=== PATIENT | male | born 1955 | race Caucasian/White ===

== ENCOUNTER → 2016-07-30 | Day surgery (SDC) | payer OTHER ==
[~2016-07-30] MED LIST: APIX5TAB PO; ASPI81TA82 PO; ATOR40TA49 PO; CARV12.52 PO; LACTATED RINGER'S 1000 ML INJ 1,000 ML ONE; LEVO.025 PO; PACE200T4 PO; PROPOFOL 500 MG/50 ML BTL IV ONE
== END | disposition home or self-care (01) ==
LOC: ESDC 07:08
PROVIDERS: ATTEND Surgery
DX: K21.0 Gastro-esophageal reflux disease with esophagitis (principal); E66.01 Morbid (severe) obesity due to excess calories
CPT/HCPCS: 00740; 43239; 88305; 88312; J3010; J7120

== ENCOUNTER 2016-12-15 15:00 | Inpatient (IN) | payer OTHER ==
[~2016-12-15] VITALS: Ht 185.4 cm; Wt 138.9 kg
[~2016-12-15 15:00] MED LIST changes: +AMLO2.5T PO; -ASPI81TA82 PO; +ATOR40TA16 PO; -ATOR40TA49 PO; -CARV12.52 PO; +CARV6.252 PO; -LACTATED RINGER'S 1000 ML INJ 1,000 ML ONE; -LEVO.025 PO; +LEVO25TA4 PO; -PACE200T4 PO; -PROPOFOL 500 MG/50 ML BTL IV ONE
[2016-12-16] MEDS ORDERED: LACTATED RINGER'S 1000 ML IV PRN (06:15)
[2016-12-16] MEDS ORDERED: CHLORHEXIDINE GLUCONATE 2 % 1 PACK (2 CLOTHS) TOPICAL PRN (06:15)
[2016-12-16] MEDS ORDERED: POVIDONE IODINE 5% (ANTISEPSIS KIT) 4 APPLICATIONS EACH NARE PRN (06:15)
[2016-12-16] MEDS ORDERED: INSULIN HUMAN REGULAR 1,000 UNITS/10 ML VIAL SQ PRN (06:15)
[2016-12-16] MEDS ORDERED: METOPROLOL TARTRATE 25 MG TAB PO PRN (06:15)
[2016-12-16] MEDS ORDERED: SODIUM CHLORID 0.9% 500 ML IV PRN (06:15)
[2016-12-16] MEDS ORDERED: ACETAMINOPHEN 1000 MG/100 ML VIAL IV SCH (06:30)
[2016-12-16] MEDS ORDERED: SCOPOLAMINE 1.5 MG PATCH T-DERMAL SCH (06:30)
[2016-12-16] MEDS ORDERED: metroNIDAZOLE 500 MG INJ 100 ML IV SCH (06:30)
[2016-12-16] MEDS ORDERED: ceFAZolin 2 GM PREMIX 50 ML IV SCH (06:30)
[2016-12-16] MEDS ORDERED: APREPITANT 40 MG CAP PO SCH (06:30)
[2016-12-16] MEDS ORDERED: AMLO5TAB2 PO (07:50)
[2016-12-16 07:51] VITALS: BP 148/93; PULSE 78; RESP 20; TEMP 98.8; O2SAT 97
[2016-12-16] MEDS: ONDANSETRON HCL 4 MG/2 ML VIAL IV PUSH SCH (07:54)
[2016-12-16] MEDS ORDERED: PROPOFOL 200 MG/20 ML AMP IV ONE (08:01)
[2016-12-16] MEDS ORDERED: NEOSTIGMINE 3 MG/3 ML SYR IV ONE (08:01)
[2016-12-16] MEDS ORDERED: LACTATED RINGER'S 1000 ML INJ 1,000 ML IV ONE (08:02)
[2016-12-16] MEDS ORDERED: ONDANSETRON HCL 4 MG/2 ML VIAL IV PUSH ONE (08:02)
--- NOTE | 2016-12-16 08:33 | EKG ---
Date Performed: 12/16/2016 Time Performed: 08:26:04 PTAGE: 61 years EKG: ATRIAL FIBRILLATION RIGHT BUNDLE BRANCH BLOCK ABNORMAL ECG PREVIOUS TRACING : 02/18/2015 12.31 DOCTOR: uSpa Marroquin Interpretating Date/Time 12/16/2016 08:31:12
[2016-12-16] MEDS ORDERED: MIDAZOLAM HCL 2 MG/2 ML VIAL ONE (11:16)
[2016-12-16] MEDS ORDERED: FAMOTIDINE 20 MG/2 ML VIAL ONE (11:16)
[2016-12-16] MEDS ORDERED: fentaNYL CITRATE 250 MCG/5 ML AMP ONE (11:17)
--- NOTE | 2016-12-16 11:49 | HHI.PR ---
Immediate Post Op Note Procedure Date: Dec 16, 2016 Pre Op Diagnosis: morbid obesity, bmi 43, htn, preDM, hypercholestremia Post Op Diagnosis: same Surgeon: Jose Alberto Leggett MD Life Skills Consultant(s): Dr. Haley Procedure: lap RYGB Findings: No leak Complications: none Specimen(s) removed: none Estimated blood loss: 15cc Anesthesia: General Drains: None Patient to: PACU Patient Condition: Good Jose Alberto Leggett MD Dec 16, 2016 11:49
[2016-12-16] MEDS ORDERED: BUPIVACAINE/EPINEPHRINE 0.5% PF 10 ML VIAL INFIL ONE (12:00)
[2016-12-16] MEDS ORDERED: METHYLENE BLUE 10 MG/ML VIAL NG ONE (12:28)
[2016-12-16] MEDS ORDERED: ACETAMINOPHEN 325MG/HYDROcodone 7.5MG/15ML UDC PO PRN (14:15)
[2016-12-16] MEDS ORDERED: diphenhydrAMINE HCL 50 MG/ML VIAL IV PRN (14:15)
[2016-12-16] MEDS ORDERED: diphenhydrAMINE HCL ELIXIR 12.5 MG/5 ML CUP PO PRN (14:15)
[2016-12-16] MEDS ORDERED: ONDANSETRON HCL 4 MG/2 ML VIAL IV PRN (14:15)
[2016-12-16] MEDS ORDERED: Post-op Orders (for Pharmacy) MISC OTHER ONE (14:15)
[2016-12-16] MEDS ORDERED: ENALAPRILAT 1.25 MG/ML VIAL IV PUSH PRN (14:15)
[2016-12-16] MEDS ORDERED: SODIUM CHLORIDE 0.9% FLUSH 10 ML FLUSH IV FLUSH PRN (14:15)
[2016-12-16] MEDS ORDERED: *morphine SULFATE 8 MG/ML PERIprocedure ONLY ONE ×2 (14:31→14:44)
[2016-12-16] MEDS ORDERED: *HYDROmorphone PF 1 MG VIAL PERIprocedural Use ONLY ONE ×2 (15:03→18:11)
[2016-12-16] MEDS: D5-1/2 NS + KCL 20 MEQ INJ 1,000 ML IV SCH (15:26)
[2016-12-16] MEDS ORDERED: DO NOT ADM ANY ANTICOAGULANT DRUGS PRN (15:30)
[2016-12-16] MEDS: METOCLOPRAMIDE HCL 10 MG/2 ML VIAL IV PUSH SCH ×2 (16:00→20:49)
[2016-12-16] MEDS: PANTOPRAZOLE SOD 40 MG DELAYED RELEASE TAB PO SCH (16:00)
[2016-12-16] MEDS ORDERED: ENOXAPARIN SODIUM 40 MG/0.4 ML SYRINGE SQ SCH (18:00)
[2016-12-16] MEDS: metroNIDAZOLE 500 MG INJ 100 ML IV SCH (18:10)
[2016-12-16 20:13] VITALS: BP 131/76; PULSE 62; RESP 18; TEMP 96.6; O2SAT 97
[2016-12-16] MEDS: ACETAMINOPHEN 325MG/HYDROcodone 7.5MG/15ML UDC PO PRN (20:49)
[2016-12-16] MEDS: SODIUM CHLORIDE 0.9% FLUSH 10 ML FLUSH IV FLUSH SCH (21:00)
[2016-12-16 22:03] VITALS: O2SAT 97
[2016-12-17 00:03] VITALS: BP 139/75; PULSE 60; RESP 18; TEMP 95.8; O2SAT 95
[2016-12-17] MEDS: D5-1/2 NS + KCL 20 MEQ INJ 1,000 ML IV SCH ×2 (02:08→09:03)
[2016-12-17] MEDS: metroNIDAZOLE 500 MG INJ 100 ML IV SCH ×2 (02:09→08:57)
[2016-12-17] MEDS: METOCLOPRAMIDE HCL 10 MG/2 ML VIAL IV PUSH SCH ×2 (04:00→09:03)
[2016-12-17] MEDS: ACETAMINOPHEN 325MG/HYDROcodone 7.5MG/15ML UDC PO PRN ×3 (04:11→16:38)
[2016-12-17 04:37] VITALS: BP 139/101; PULSE 70; RESP 18; TEMP 96.3; O2SAT 98
[2016-12-17 05:03] VITALS: BP 128/89
[2016-12-17 08:00] VITALS: BP 151/89; PULSE 75; RESP 18; TEMP 96.6; O2SAT 95
[2016-12-17 08:14] LABS: AUTOMATED NEUTROPHIL # 9.7 TH/MM3 (1.8-7.7); BASOPHIL # 0.1 TH/MM3 (0-0.2); BASOPHIL % 0.4 % (0.0-2.0); EOSINOPHIL % 0.3 % (0.0-4.0); HEMATOCRIT 46.6 % (39.0-51.0); HEMO FLAGS DIFF FINAL; LYMPH % 10.7 % (9.0-44.0); LYMPHOCYTE # 1.3 TH/MM3 (1.0-4.8); MEAN CELL VOLUME 92.4 FL (80.0-100.0); MEAN CORPUSCULAR HEMOGLOBIN 29.9 PG (27.0-34.0); MEAN CORPUSCULAR HGB CONC 32.3 % (32.0-36.0); MONO % 7.7 % (0.0-8.0); NEUT % 80.9 % (16.0-70.0); PLATELET COUNT 164 TH/MM3 (150-450); RED BLOOD COUNT 5.04 MIL/MM3 (4.50-5.90); RED CELL DISTRIBUTION WIDTH 14.5 % (11.6-17.2); WHITE BLOOD COUNT 11.9 TH/MM3 (4.0-11.0)
[2016-12-17 08:45] LABS: BICARBONATE 26.3 MEQ/L (21.0-32.0); MAGNESIUM 2.1 MG/DL (1.5-2.5); POTASSIUM 4.1 MEQ/L (3.5-5.1)
[2016-12-17] MEDS: SODIUM CHLORIDE 0.9% FLUSH 10 ML FLUSH IV FLUSH SCH (08:56)
[2016-12-17] MEDS: PANTOPRAZOLE SOD 40 MG DELAYED RELEASE TAB PO SCH (08:57)
[2016-12-17] MEDS ORDERED: LEVOTHYROXINE SODIUM 25 MCG TAB PO SCH (10:00)
[2016-12-17 12:00] VITALS: BP 143/80; PULSE 80; RESP 18; TEMP 97.4; O2SAT 96
--- NOTE | 2016-12-17 12:17 | HHI.PR ---
Subjective Subjective Notes 61yo male POD#1 RNY. Seen ambulating the halls, in no acute distress. Denies any GI complaints Objective Vitals/I&O Vital Signs Date Time Temp Pulse Resp B/P Pulse Ox O2 Delivery O2 Flow Rate FiO2 12/17/16 08:00 96.6 75 18 151/89 95 12/16/16 22:03 21 12/16/16 18:00 Nasal Cannula 2 Labs Laboratory Tests Test 12/17/16 07:39 White Blood Count 11.9 Red Blood Count 5.04 Hemoglobin 15.1 Hematocrit 46.6 Mean Corpuscular Volume 92.4 Mean Corpuscular Hemoglobin 29.9 Mean Corpuscular Hemoglobin 32.3 Concent Red Cell Distribution Width 14.5 Platelet Count 164 Mean Platelet Volume 9.0 Neutrophils (%) (Auto) 80.9 Lymphocytes (%) (Auto) 10.7 Monocytes (%) (Auto) 7.7 Eosinophils (%) (Auto) 0.3 Basophils (%) (Auto) 0.4 Neutrophils # (Auto) 9.7 Lymphocytes # (Auto) 1.3 Monocytes # (Auto) 0.9 Eosinophils # (Auto) 0.0 Basophils # (Auto) 0.1 CBC Comment DIFF FINAL Differential Comment Sodium Level 140 Potassium Level 4.1 Chloride Level 107 Carbon Dioxide Level 26.3 Anion Gap 7 Blood Urea Nitrogen 14 Creatinine 0.85 Estimat Glomerular Filtration 92 Rate Random Glucose 127 Calcium Level 8.5 Magnesium Level 2.1 Cardiovascular: Irregular (history of A fib) Lungs: Clear Abdomen: Post-op tenderness Extremities: Perfused Wound Wound : Wound Location: Abdomen Appearance: Clean & Dry A/P Assessment and Plan Continue to increase fluids as tolerated Continue with frequent ambulation Discharge Planning D/C home later today Jaison Roberson Dec 17, 2016 12:17
[2016-12-17] MEDS ORDERED: METOCLOPRAMIDE HCL 10 MG/2 ML VIAL IV PUSH PRN (14:15)
[2016-12-17 16:00] VITALS: BP 154/96; PULSE 60; RESP 18; TEMP 95.9; O2SAT 98
[2016-12-17] MEDS: ONDANSETRON HCL 4 MG/2 ML VIAL IV PUSH SCH (16:37)
[2016-12-17] MEDS ORDERED: amLODIPine BESYLATE 5 MG TAB PO SCH (21:00)
--- NOTE | 2016-12-19 18:44 | MP ---
cc: DAVID LEGGETT MD DATE OF SURGERY 12/16/2016 PREOPERATIVE DIAGNOSIS Morbid obesity, BMI 43, hypertension, atrial fibrillation, hypercholesteremia, pre-diabetes. POSTOPERATIVE DIAGNOSIS Morbid obesity, BMI 43, hypertension, atrial fibrillation, hypercholesteremia, pre-diabetes. PROCEDURE PERFORMED Laparoscopic gastric bypass, Sandip-en-Y. SURGEON Dr. David Leggett HOG SLAUGHTERER Dr. Nikos Haley. Due to the complexity of the laparoscopic case Dr. Haley was needed for camera control and retraction. ANESTHESIA GETA. IV FLUIDS See anesthesia sheet. ESTIMATED BLOOD LOSS 15 cc. DRAINS None. COMPLICATIONS None. WOUND CLASSIFICATION Clean, contaminated. SPECIMENS None. FINDINGS No leak on methylene blue test. INDICATION The patient is a 61-year-old male who presents with morbid obesity, multiple attempts at weight loss without success. Therefore operative intervention after the patient has been cleared from medical standpoint. The patient has a history of Eliquis for which is held and has been deemed acceptable risk by cardiology. PROCEDURE IN DETAIL The patient was taken to the operating suite, placed in the supine position. He was prepped and draped in the usual sterile fashion after induction of general trache anesthesia. Brief time-out stating correct patient, procedure, surgical site. We are all in agreement with this. Attention first directed to the midline 18 cm from the xihpoid. Local anesthetic injected with Marcaine with epinephrine. 5 mm incision was made just off the midline to the left. 5-mm OptiView port was used to direct visualization and introduce peritoneum to 15 mm pneumoperitoneum. Vision of the quadrants there was no evidence of injury. Several other trocars were placed. A right upper quadrant 5-mm liver retractor was placed, a 12 mm right lower quadrant port was placed, 12 mm left lower quadrant was placed, a 5 mm left lower quadrant port was also placed, prior to placement local anesthetic injected at all port sites. Continue directed to the omentum, harmonic scalpel was used to ligate the omentum. After this take down several minimal adhesions was done. transverse colon, hepatic flexure to near the transverse colon was split creating a path for the Sandip Limb. Next, the ligament of Treitz was identified, the bowel was walked 40 cm distal to this, the small bowel was divided using [place] Flex Endo-EMRE stapler with Seamguard. Next, a clip was placed to chuck the proximal limb, the distal limb was further walked a distance 100 cm distal to it. Enterotomies were made at the antimesenteric borders of the biliopancreatic limb in order to fashion a jejunojejunostomy. The linear stapler was used to create a cqxgfkf-rlg-waeldye layer. This was done in a [id number]-vf-cezk stable manner. Next, the common enterotomy was grasped and the Endo-EMRE was used to approximate the open conjoined enterotomy. Small clips were placed on the staple line for hemostasis. 3-0 silk was used in the redundant bowel portion sutured with a Lycra tie. Once we were finished with this the patient was placed in reverse Trendelenburg with left side up. Gladis flex retractor was placed to retract the left lobe of the liver, angle of His was taken down using harmonic scalpel. 5-mm camera port in the midline, umbilicus was appropriate position. Down the angle of His, on the lesser curvature of stomach harmonic scalpel was used and blunt dissection was used to enter the window in the posterior lesser sac. Blue load was used, Endo-EMRE stapler to transect this. We confirmed that the NG tube and probe were removed prior to transection to create the pouch. We headed cephalad with several more firings of the blue loaded Endo-EMRE stapler up to the angle of His to completely __ by the stomach. Next, the gastrotomy was created using hook electrocautery. Enterotomy was placed into the Sandip limb jejunal side as well. Endo-EMRE stapler was used to staple and approximate the jejunal limb of the gastric bypass approximately 2.5 cm. 2-0 Polysorb was used in a running fashion to approximate the enterotomy. [place] through the suture was cut. The 18-Yi OG tube was advanced past the anastomosis. The defect was closed using a second running 2-0 Polysorb Endo suture. These were tied together creating the single layer. This was tested with methylene blue without evidence of leaking. Next, a second layer was ___ using Lycra tie and endosuture was approximated and reinforcement in a two layered gastrojejunostomy. There was minimal bleeding noted at the lesser curvature. Hemostasis was obtained, appropriately, suction irrigation used. Next Eviseal was placed over the gastrojejunostomy, jejunojejunostomy and all staple lines. Next, the defect was closed to prevent any internal hernias. This was done with placement of 2-0 Surgidec. attack. Next, the 12 mm port sites were closed with 0 Vicryl and a suture passer. Following this pneumoperitoneum was removed, all ports were removed as well. The OG was removed, endocircular suture was done, subcuticular suture was done to all port sites we use the 4-0 Monocryl. Sterile dressings then placed. The patient tolerated the procedure well. There is no intraoperative complication. The patient was extubated, taken to stable to PACU. All lap and instrument counts were correct at the end of the procedure. MD YOBANY Dai/SAMARIA /9:55 PM /5:40 PM
== END 2016-12-17 16:58 | disposition home or self-care (01) | DRG 621 ==
LOC: HSDI 12-16 05:36 → N07B 12-16 19:58
PROVIDERS: ADMIT Surgery; ATTEND Surgery
PROC: 0D164ZA Bypass Stomach to Jejunum, Percutaneous Endoscopic Approach (ICD-10-PCS; principal; 2016-12-16 11:23)
DX: E66.01 Morbid (severe) obesity due to excess calories (principal); Z68.41 Body mass index [BMI] 40.0-44.9, adult; I48.91 Unspecified atrial fibrillation; I10 Essential (primary) hypertension; R73.03 Prediabetes; E78.00 Pure hypercholesterolemia, unspecified; E03.9 Hypothyroidism, unspecified; Z87.891 Personal history of nicotine dependence
CPT/HCPCS: 80048; 82948; 83735; 85025; 93005; J0131; J0690; J1170; J1650; J2250; J2270; J2405; J2710; J2765; J3010; J3480; J7120; J8501

== ENCOUNTER 2017-04-15 11:39 | Day surgery (SDC) | payer OTHER ==
[~2017-04-15 11:39] MED LIST changes: -AMLO2.5T PO; +AMLO5TAB2 PO; -ATOR40TA16 PO
[2017-04-15] MEDS ORDERED: CHLORHEXIDINE GLUCONATE 2 % 1 PACK (2 CLOTHS) TOPICAL PRN (12:00)
[2017-04-15] MEDS ORDERED: LACTATED RINGER'S 1000 ML IV PRN (12:00)
[2017-04-15] MEDS ORDERED: METOPROLOL TARTRATE 25 MG TAB PO PRN (12:00)
[2017-04-15] MEDS ORDERED: POVIDONE IODINE 5% (ANTISEPSIS KIT) 4 APPLICATIONS EACH NARE PRN (12:00)
[2017-04-15] MEDS ORDERED: SODIUM CHLORID 0.9% 500 ML IV PRN (12:00)
[2017-04-15] MEDS ORDERED: VIAG100T PO (12:06)
[2017-04-15] MEDS ORDERED: CALC1TAB12 PO (12:06)
[2017-04-15] MEDS ORDERED: MAPA500T13 PO (12:06)
[2017-04-15] MEDS ORDERED: MULT-154 (12:06)
[2017-04-15] MEDS ORDERED: AMIO200T PO (12:06)
[2017-04-15] MEDS ORDERED: PANT40TA3 PO (12:06)
[2017-04-15] MEDS ORDERED: PROPOFOL 200 MG/20 ML AMP ONE (14:25)
--- NOTE | 2017-04-15 22:57 | MP ---
cc: MELE RAMOS MD, DR., FRIEDMAN, JEFFREY DATE OF SURGERY 04/15/17 PROCEDURE Cardioversion INDICATION Atrial fibrillation PROCEDURAL STATEMENT The patient and draped and prepped in usual manner. Anesthesia was given as per the Anesthesia Department. The patient received a 200 joule shock. CONCLUSION Successful cardioversion from atrial fibrillation to sinus rhythm. PLAN We will plan to discharge the patient later today. Mele Ramos MD, FRCP,[facility]/ /2:25 PM /10:56 PM
--- NOTE | 2017-04-16 18:41 | EKG ---
Date Performed: 04/15/2017 Time Performed: 13:39:12 PTAGE: 61 years EKG: Sinus bradycardia with PAC(s) with 1st degree A-V block Right bundle branch block Inferior/ lateral T wave changes are nonspecific Abnormal ECG Compared to PREVIOUS TRACING , there is a rhythm change from atrial fibrillation to sinus bradycardia with first degree AV block PREVIOUS TRACIN04/15/2017 11.59 DOCTOR: Germain Horne Interpretating Date/Time 04/16/2017 18:40:25
--- NOTE | 2017-04-16 18:41 | EKG ---
Date Performed: 04/15/2017 Time Performed: 11:59:16 PTAGE: 61 years EKG: Atrial fibrillation Right bundle branch block Inferior/lateral ST-T changes are nonspecific Since previous tracing, no significant change noted Abnormal ECG PREVIOUS TRACING : 12/16/2016 08.26 DOCTOR: Germain Horne Interpretating Date/Time 04/16/2017 18:39:46
== END 2017-04-15 14:43 | disposition home or self-care (01) ==
LOC: HDOC 11:39 → HDIC 11:39 → HDOC 14:43
PROVIDERS: ATTEND Internal Medicine Cardiovascular Disease
DX: I48.91 Unspecified atrial fibrillation (principal)
CPT/HCPCS: 92960; 93005